=== PATIENT | female | born 1940 | race African-American/Black ===

== ENCOUNTER 2017-05-08 09:00 | Emergency (ER) | payer MEDICARE, OTHER ==
--- NOTE | 2017-05-08 09:51 | ED Physician Documentation ---
Fall - HPI Stated Complaint: fall Chief Complaint: Fall Onset: yesterday Where: home Context: lost balance (on first rung of [employer]-fell backwards onto carpet) r: mild Associated Symptoms:: no loss of consciousness Location of Pain/Injury: upper back, lower back (pain rt flank and operhaps very mild lower ribs no pain w/deep breath). denies: head, neck, face Injury to Right Extremity: none Injury to Left Extremity: none - ROS CONST: no problems NEURO: denies: dizziness, anxiety, depression MS/SKIN/LYMPH: denies: weakness, numbness, neck pain, back pain, ankle swelling , leg swelling EYES/ENT: denies: problems with vision CVS/RESP: none GI/: denies: problems urinating, nausea, vomiting (urine dark like coffee) - PAST HX Past History: other (djd thryoid) Allergies/Adverse Reactions: Allergies Allergy/AdvReac Type Severity Reaction Status Date / Time No Known Allergies Allergy Verified 05/08/17 09:20 Home Medications: Ambulatory Orders Medication Instructions Recorded Hydrochlorothiazide [Hydrodiuril] 12.5 mg D 01/28/13 Levothyroxine Sodium [Levothroid] 100 mcg PO QDAY 01/28/13 Simvastatin 40 mg PO D 01/28/13 Losartan Potassium 50 mg D 10/22/15 Albuterol Sulfate [Ventolin Hfa] 1 puff IH Q4 PRN #1 hfa.aer.ad 10/25/15 Alprazolam [Xanax] 0.5 mg PO BID PRN #20 tablet 10/25/15 Fluticasone/Salmeterol [Advair 1 each INH BID #1 ea 10/25/15 250-50 Diskus] - SOCIAL HX Smoking History: non-smoker Alcohol Use: occasionally Drug Use: none - FAMILY HX Family History: no significant history - VITAL SIGNS Vital Signs: Vital Signs Temp Pulse Resp BP Pulse Ox 99.7 F H 80 16 162/80 98 05/08/17 09:03 05/08/17 09:03 05/08/17 09:03 05/08/17 09:03 05/08/17 09:03 - REVIEWED ASSESSMENTS Nursing Assessment Reviewed: Yes Vitals Reviewed: Yes ED Results Lab/Radiology - Orders Orders: ED Orders Category Date Time Status UA [URINALYSIS] Routine Lab 05/08/17 Ordered Fall Physical Exam - Physical Exam General Appearance: mild distress Head: non-tender Neck: non-tender Eye: CLEMENCIA, EOMI ENT: nml external inspection Resp/CVS: chest non-tender, no ecchymosis, breath sounds nml, no resp. distress , heart sounds nml. No: rib tenderness, rib palpable fracture, tachycardia, abrasion Abdomen: soft, non-tender, other (very sliht tenderness rt flank none onribs vertebrae or abdomenor spine) Neuro: oriented x3, CN's nml as tested, sensation nml, motor nml, mood/affect nml. No: unsteady gait Skin: color nml, no rash. No: cyanosis, diaphoresis, pallor, ecchymosis Back: normal inspection, no CVA tenderness, no vertebral tenderness Extremities: atraumatic, pelvis stable Joint: joints nml, nml ROM - [place] Coma Score Eyes Open: Spontaneous Speech: Oriented Motor: Obeys Commands Discharge Referrals: Dillon Rock MD [Primary Care Provider] - 2 Days
[2017-05-08 09:58] LABS: APPEARANCE,URINE CLEAR (CLEAR); COLOR,URINE YELLOW (YELLOW)
[2017-05-08 09:59] LABS: OCCULT BLOOD,URINE 1+ (NEGATIVE); PH URINE 7.5 (5.0 - 8.0); UROBILINOGEN URINE 0.2 Eu (0.2-1.0)
[2017-05-08 10:10] VITALS: BP 158/78
== END 2017-05-08 10:06 ==
LOC: ED 09:00
DX: R10.9 Unspecified abdominal pain (principal); M54.5 Low back pain; W19.XXXA Unspecified fall, initial encounter; Y93.9 Activity, unspecified; Y99.9 Unspecified external cause status
CPT/HCPCS: 81002; 87086; 99283

== ENCOUNTER 2017-05-13 13:55 | Emergency (ER) | payer OTHER ==
[2017-05-13] MEDS: KETOROLAC TROMETHAMINE 60 MG/2 ML VIAL IM ONE (14:26)
--- NOTE | 2017-05-13 14:44 | ED Physician Documentation ---
Lower Extremity Problem - HISTORIAN Historian: patient - HPI Stated Complaint: Right Hip Pain/Constipation Chief Complaint: Lower Extremity Problem Location of Injury: R hip Timing: still present Recent Injury: Yes (2 weeks ago) Where: home Severity: mild Quality: pain (right hip), tenderness (right hip) Exacerbated By: other (sitting) Relieved By: rest Further Comments: yes (76 year old female patient presents with right hip pain for the past 2 weeks. States she fell off the bottom step of a step stool 2 weeks ago, was seen in the ER. Is able to walk without discomfort. States pain is worse when sitting. Worse at right iliac crest and into right buttock. Reports no BM since Monday.) - ROS CONST: no problems MS/SKIN/LYMPH: denies: calf pain, neck pain, joint pain, leg swelling, leg pain , back pain, ankle swelling CVS/RESP: none GI/: none, other (constipation) EYES/ENT: none NERUO/PSYCH: denies: headache - PAST HX Past History: none Other History: hyperlipidemia, hypertension, other (hypothyroidism) Allergies/Adverse Reactions: Allergies Allergy/AdvReac Type Severity Reaction Status Date / Time No Known Allergies Allergy Verified 05/08/17 09:20 Home Medications: Ambulatory Orders Medication Instructions Recorded Hydrochlorothiazide [Hydrodiuril] 12.5 mg D 01/28/13 Levothyroxine Sodium [Levothroid] 100 mcg PO QDAY 01/28/13 Simvastatin 40 mg PO D 01/28/13 Losartan Potassium 50 mg D 10/22/15 Albuterol Sulfate [Ventolin Hfa] 1 puff IH Q4 PRN #1 hfa.aer.ad 10/25/15 Alprazolam [Xanax] 0.5 mg PO BID PRN #20 tablet 10/25/15 Fluticasone/Salmeterol [Advair 1 each INH BID #1 ea 10/25/15 250-50 Diskus] - SOCIAL HX Smoking History: non-smoker - FAMILY HX Family History: none - VITAL SIGNS Vital Signs: Vital Signs Temp Pulse Resp BP Pulse Ox 97 F L 82 18 126/54 97 05/13/17 13:55 05/13/17 15:46 05/13/17 15:46 05/13/17 15:46 05/13/17 15:46 - REVIEWED ASSESSMENTS Nursing Assessment Reviewed: Yes Vitals Reviewed: Yes ED Results Lab/Radiology - Radiology Radiology Impressions: Examination: Obstruction series History: Abdominal discomfort Findings: 3 views obtained of the abdomen. Scattered air filled loops of large and small bowel. No obvious air fluid level identified. Calcification projecting over the inferior margin of the left kidney. Lumbar spine degenerative changes. Lower pelvic calcifications. Impression: Nonspecific bowel gas pattern. Prominent loops of air-filled bowel without air fluid levels. Presumed left renal calcification. Electronically signed on May 13, 2017 3:09:44 PM CDT by: Giorgio Askew Examination: Plain film hip History: Hip discomfort Comparison exams: None provided Findings: 2 views of the hip demonstrate normal cortical margins. No fracture no dislocation. Minimal acetabular spurring. No soft tissue abnormality. Impression: Mild degenerative changes. No acute osseous abnormality. Electronically signed on May 13, 2017 3:10:33 PM CDT by: Giorgio Askew - Orders Orders: ED Orders Category Date Time Status ABDOMEN COMPLETE [RAD] Stat Exams 05/13/17 Ordered RT HIP 2VIEW COMPLETE [RAD] Stat Exams 05/13/17 Ordered Ketorolac Tromethamine [Toradol] Med 05/13/17 14:20 Discontinued 60 mg IM NOW ONE Magnesium Citrate [Citrate of Magnesia] Med 05/13/17 15:31 Discontinued 150 ml PO NOW ONE Lower Extremity Problem - EXAM General Appearance: mild distress Hips: right hip: other (no ecchymosis, edema or hyperthermia noted. ), bilateral hip: non-tender, normal inspection, normal range of motion, no evidence of injury (no c/o pain with flexion, extension, adduction or abduction of right hip) Legs: bilateral: non-tender, normal inspection, normal range of motion, no evidence of injury Knees: bilateral: non-tender, normal inspection, normal range of motion, no evidence of injury Ankle: bilateral: non-tender, normal inspection, normal range of motion, no evidence of injury Foot: bilateral foot: non-tender, normal inspection, normal range of motion, no evidence of injury EENT: eye inspection normal, CLEMENCIA RESPIRATORY: no resp distress CVS: reg rate & rhythm VASCULAR: no vascular compromise, pulses full/equal NEURO/PSYCH: oriented X3, motor nml, sensation nml, mood/affect nml, cognition normal SKIN: normal color, warm/dry, NR, INT, PAL, DR BACK: normal inspection, no CVA tenderness Discharge Clincal Impression: Right hip pain Constipation Qualifiers: Constipation type: unspecified constipation type Qualified Code(s): K59.00 - Constipation, unspecified Referrals: Dillon Rock MD [Primary Care Provider] - 2 Days Additional Instructions: Repeat 1/2 bottle of magnesium sulfate in the morning if you do not have multiple BMs today. You may use Tylenol every 4hour as needed for pain. Limit your dose to less than 4 G per day. You may want to try massage, over the counter lidocaine patches, biofreeze, marisela santana or aspercream . Condition: Stable Disposition: HOME, SELF-CARE Decision to Admit: NO Decision Time: 15:29
[2017-05-13] MEDS: MAGNESIUM CITRATE 296 ML BOTTLE PO ONE (15:38)
[2017-05-13 15:47] VITALS: BP 126/54
--- NOTE | 2017-05-13 18:47 | Diagnostic Imaging Report ---
BRYAN AVALOS (MANUELITO) - ER [facility] [id number] [facility].[address] [address] Report Submission Date: May 13, 2017 3:09:44 PM CDT Patient Study Name: ETHAN ALLEN Date: May 13, 2017 2:32:15 PM CDT Modality Type: CR Gender: F Description: ABDOMEN : 38 Institution: [facility] Physician: BRYAN AVALOS (MANUELIT[place]) - ER Examination: Obstruction series History: Abdominal discomfort Findings: 3 views obtained of the abdomen. Scattered air filled loops of large and small bowel. No obvious air fluid level identified. Calcification projecting over the inferior margin of the left kidney. Lumbar spine degenerative changes. Lower pelvic calcifications. Impression: Nonspecific bowel gas pattern. Prominent loops of air-filled bowel without air fluid levels. Presumed left renal calcification. Electronically signed on May 13, 2017 3:09:44 PM CDT by: Giorgio TURNER
--- NOTE | 2017-05-13 18:47 | Diagnostic Imaging Report ---
[facility] [id number] [facility] [address] [place] [address]. [id number] Report Submission Date: May 13, 2017 8:39:53 AM CDT Patient Study Name: SAWYER MARIN Date: May 13, 2017 8:07:42 AM CDT Modality Type: CR Gender: M Description: PELVIS : [birth year] Institution: [facility] Physician: [facility] 2 views of the left hip History: ROTATION OF LEG S/P RECENT REPAIR, NO PRIORS FROM ORGINAL FACILITY/ SURGERY Ip deep to the top of no similar comparison studies Skin rajat are noted at the left hip Lower lumbar spine degenerative changes are seen. Bowel gas obscures the left sacrum and pelvic bones. Patient is post left hip replacement, intact hardware No evidence of acute fracture or dislocation of the visualized pelvic bones Impression: 1. Post total left hip replacement, intact hardware. 2. Bowel gas obscures the pelvic bones, within this limitation, no evidence of acute fracture or dislocation of the visualized pelvic bones 3. Degenerative changes lower lumbar spine Electronically signed on May 13, 2017 8:39:53 AM CDT by: Hellen TURNER
== END 2017-05-13 15:46 | disposition home or self-care (01) ==
LOC: ED 13:55
DX: M25.551 Pain in right hip (principal); K59.00 Constipation, unspecified
CPT/HCPCS: 73502; 74020; J1885; 96372; 99283